=== PATIENT | female | born 1960 | race Caucasian/White ===

== ENCOUNTER 2025-07-08 05:53 | Inpatient (IN) ==
--- NOTE | 2025-07-04 08:53 | Anesthesiology Consultation ---
Date of Service July 04, 2025 Assessment & Plan (1) Encounter for pre-operative examination: Chart Review Chart Review: Acceptable Risk for Surgery (pending DOS EKG) and Patient NOT seen in Pre Admission Testing - Check EKG stat DOS - Discussed Chiari malformation with Dr Cates- patient with brain surgery in 1998 for the malformation (presumed decompression); no issues since- no neurological symptoms/no recent head imaging- patient can proceed as scheduled -Infectious Disease screening: Per PAT nursing assessment on 07/02/25. Scratchy throat that started 06/30/25- followed up with PCP over the phone- treated with abx for "cold" (had followed up with surgeon 07/01/25). As of 07/04/25 patient is feel better/symptoms resolved (will continue with abx as prescribed). Did take home Covid test that was negative per patient. No known infectious disease contacts in past 10 days. No recent travel outside the country. Spoke with Infection Control- since patient is asymptomatic and home Covid test was negative- no additional Covid testing is needed preoperatively History Surgery Operation Date: 07/08/25 07:30 Proposed Procedures p Robotic Navigational Bronchoscopy - Howard Casey MD s Endobronchial Ultrasound - Howard Casey MD Height/Weight Height: 5 ft 5 in Weight: 49.895 kg Allergies Allergy/AdvReac Type Severity Reaction Status Date / Time BEE STINGS Allergy Severe Uncoded 07/08/25 06:06 Medications Home Medications Medication Instructions Recorded Confirmed Last Taken albuterol sulfate 1.25 mg/3 mL 1.25 mg inhalation QID PRN sob 07/01/25 07/08/25 07/06/25 07:00 solution for nebulization albuterol sulfate 90 mcg/actuation 1 puff inhalation QID PRN sob 07/01/25 07/08/25 07/07/25 20:00 aerosol inhaler fluticasone fur. 100 mcg-umeclid 1 inh inhalation DAILY 07/01/25 07/08/25 07/08/25 04:00 62.5 mcg-vilant 25 mcg inhalat.powder (Trelegy Ellipta) ipratropium bromide 0.02 % 2.5 ml inhalation QID PRN sob 07/01/25 07/08/25 Unknown solution for inhalation omeprazole 40 mg capsule,delayed 40 mg PO QAM 10/07/08/25 07/08/25 04:00 release trazodone 150 mg tablet 150 mg PO HS PRN Sleep 07/01/25 07/08/25 Unknown acetaminophen 500 mg tablet 1,000 mg PO DAILY PRN Pain 07/02/25 07/08/25 07/06/25 08:00 food supplemt, lactose-reduced 1 ea PO DAILY 07/02/25 07/08/25 Unknown (Ensure oral liquid) Active Medications Generic Name Dose Route Start Last Admin Trade Name Freq PRN Reason Stop Dose Admin Lactated Ringer's 1,000 mls @ 15 mls/hr 07/08/25 06:00 07/08/25 06:21 Lr IV 07/09/25 05:59 15 mls/hr .Q24H PETER Administration Past Medical History Medical History HLD (hyperlipidemia) History of Chiari malformation s/p brain surgery 1998 no longer follows with neurosurgery due to stability per patient denies any neurological symptoms currently History of blood transfusion (2018) states after RUL lobectomy History of pneumonia (05/2025) admit to [facility] 5 days Osteoporosis Cardiac murmur checked in past, no issues, no well treatment offsider no cardiac murmur noted at 07/01/25 pulm visit or at 06/27/25 PCP visit [facility] (dyspnea on exertion) Pulmonary nodule New suspicious pulmonary nodule - reason for upcoming procedure 07/08/25 Hx of cancer of lung (2018) had RUL lobectomy, no chemo or xrt Barretts esophagus GERD (gastroesophageal reflux disease) COPD (chronic obstructive pulmonary disease) case management patient follows with dr. casey - only uses inhalers/nebs as needed- used her albuterol last night, trelegy yesterday AM Past Surgical History Surgical History History of lobectomy of lung (2018) RUL- lung cancer- [place]- no chemo or xrt Hx of esophagogastroduodenoscopy Hx of colonoscopy with polypectomy Hx of laparoscopy multiple History of lumpectomy of both breasts benign Hx of breast biopsy benign Hx of cholecystectomy (2017) Hx of unilateral salpingectomy (1974) left, with ovary removal- age 15 Hx of appendectomy (1971) Hx of brain surgery (1998) chiari malformation- [facility]- no neuro Social History Smoking Status: Current every day smoker Smoking cigarettes per day: 10 cigs per day (trying to quit- advised by PAT nursing) Do You Dip or Chew Tobacco: No Hx Alcohol Use: No Hx Substance Use: No substance use type: does not use Physical Exam Vital Signs Last Vital Signs Temp 36.7 C 07/08/25 06:04 Pulse 84 07/08/25 06:04 Resp 20 07/08/25 06:04 BP 140/64 07/08/25 06:04 Pulse Ox 97 07/08/25 06:04 O2 Del Method Room Air 07/08/25 06:04 Testing Laboratory Results 07/02/25= WBC: 5.9 H/H: 10.7/33.8 PLATELETS: 370 SODIUM: 139 POTASSIUM: 4.1 CHLORIDE: 108 CO2: 27.0 BUN: 21 CREATININE: 1.00 GLUCOSE: 93 Electrocardiogram Date: 06/02/25 ST at 107bpm Normal axis Incomplete RBBB (Done during admission for suspected COPD exacerbation/sepsis (likely pneumonia)- will repeat DOS ) Other Testing Chest CT 06/30/25= 1.3 cm spiculated pulmonary nodule at the lingula has morphology suspicious for malignancy. There is prior right upper lobectomy. There is moderate emphysema. There is no pulmonary consolidation or pleural effusion. There are a few calcified pulmonary granuloma.
[2025-07-08] MEDS: LR 15ML/HR IV SCH (06:21)
--- NOTE | 2025-07-08 06:40 | History & Physical Bridge Note ---
Date of Service July 08, 2025 History & Physical Bridge Note I have examined the patient, reviewed the History & Physical and in the interval since the performance of the History & Physical I have noted the following changes of clinical significance: no changes noted
[2025-07-08] MEDS ORDERED: LIDOCAINE 2% 2 ML VIAL/AMP(20MG/ML) INFIL ONE (07:09)
[2025-07-08] MEDS ORDERED: ONDANSETRON INJ 2 MG/ML 2 ML VIAL ONE (07:09)
[2025-07-08] MEDS ORDERED: MIDAZOLAM HCL 1 MG/ML 2ML VIAL ONE (07:09)
[2025-07-08] MEDS ORDERED: PROPOFOL IV EMULSION 10 MG/ML 20 ML VIAL IV ONE (07:09)
[2025-07-08] MEDS ORDERED: DEXAMETHASONE SOD INJ 4 MG/ML VIAL ONE (07:09)
[2025-07-08] MEDS ORDERED: ROCURONIUM BROMIDE 10 MG/ML 5 ML VIAL IV ONE ×2 (07:09→08:00)
[2025-07-08] MEDS ORDERED: ATROPINE SULFATE 0.1 MG/ML 10ML SYR IV PRN (07:16)
[2025-07-08] MEDS ORDERED: DROPERIDOL 5 MG/2 ML VIAL IV PRN (07:16)
[2025-07-08] MEDS ORDERED: PHENYLEPHRINE 100MCG/ML 5ML SYR ONE (07:37)
[2025-07-08] MEDS ORDERED: PHENYLEPHRINE HCL 10 MG/ML VIAL ONE (07:50)
[2025-07-08] MEDS ORDERED: VASOPRESSIN 20 UNIT/ML VIAL ONE (08:16)
[2025-07-08] MEDS ORDERED: NEOSTIGMINE METHYLSULFATE 1 MG/ML 10ML VIAL ONE (08:45)
[2025-07-08] MEDS ORDERED: GLYCOPYRROLATE 0.2 MG/ML VIAL ONE (08:45)
--- NOTE | 2025-07-08 09:14 | Procedure Note ---
Procedure Note: Bronchoscopy Procedure Procedure: Fiberoptic bronchoscopy Electromagnetic navigational bronchoscopy with fluoroscopic guidance Endobronchial ultrasound evaluation during bronchoscopy Endobronchial ultrasound with transbronchial needle aspiration of lymph nodes, single station Electromagnetic navigational bronchoscopy with transbronchial biopsies under fluoroscopic guidance Electromagnetic navigational bronchoscopy with fine-needle aspiration under fluoroscopic guidance Placement of fiducial under fluoroscopic guidance Provider: Howard Casey MD Indication: Pulmonary nodule in patient with known history of resected lung cancer Consent: Signed by patient and timeout verified prior to procedure. Procedure: Patient was brought to the OR suite. Consent was verified. Appropriate radiographic studies had been reviewed prior to the procedure. General anesthesia was initiated by the anesthesia team and the patient was intubated with an 8.0 endotracheal tube. After initiation of general anesthesia, the fiberoptic scope was advanced through the existing endotracheal tube via the adapter. The tube was sounded. It was withdrawn to approximately 5 or 6 cm above the wendy and secured in place. A systematic inspection of the airways was then conducted. The right tracheobronchial tree was examined. The patient is status post right upper lobectomy. The staple line was intact. The remaining of the anatomy was unremarkable and the mucosa was normal. Left tracheobronchial tree also demonstrated a normal anatomic configuration with normal mucosa. No endobronchial lesions were identified. The fiberoptic scope was then removed. There were some clear thin mucoid secretions present in the airways which were suctioned free. The robotic adapter was then secured to the endotracheal tube and secured using the flexible arm attached to the bed. The patient had previously been placed on a bed with an electromagnetic navigation field and a tilt table in place. The robot was advanced to the head of the bed and the robotic arm was docked to the endotracheal tube via the robotic adapter. Robot arm was withdrawn in normal fashion and the scope attached with the antibuckling device. The robotic scope was then maneuvered into the endotracheal tube where controller registration took place. Once that was confirmed the scope was advanced to the main wendy and verified in good position. Navigational registration was then conducted without difficulty. Once registration was completed, the robotic bronchoscope was used to navigate to the lesion in the lingula. Once the scope was approximately 15 to 20 mm from the lesion, a fluoroscopic tomographic spin was conducted with reconstruction of images. Multiple tomographic spin's were required with repositioning of the scope and To enable an adequate view of the lesion. The lesion was able to be verified on the tomogram. It was marked and additional navigation was conducted under direct fluoroscopic guidance with augmented fluoroscopy. Once the scope was appropriately angled towards the lesion, under direct fluoroscopic guidance, The radial ultrasound probe was advanced. A slightly eccentric view of the pulmonary nodule was identified corresponding to the augmented fluoroscopic images. The radial ultrasound was then removed and an arc point needle was advanced under fluoroscopic guidance into the lesion. Repeat tomographic spin was conducted with the needle within the lesion and strike point was verified. 2 passes were the needle were conducted. Rapid onsite cytologic evaluation confirmed malignant cells on the needle. At that point,biopsy forceps were advanced into the lesion. Total of 6 biopsies were taken with touch preps performed and rapid onsite cytologic evaluation conducted. Advanced augmented microscopy confirmed lesional material and rapid onsite cytologic evaluation confirmed malignant cells. Once adequate cellular material had been obtained, a fiducial was placed under fluoroscopic guidance and confirmed in 3 planes to be in good position. The robotic bronchoscope was withdrawn and the robotic arm detached from the patient. The endobronchial ultrasound was then advanced through the adapter via the existing endotracheal tube. A survey of mediastinal lymph node stations was conducted including the 4R, 4L, 7, 10/11 R, and 10/11 L stations. A 6 mm subcarinal lymph node was identified and biopsied using a 21-gauge needle x 4 with rapid onsite cytologic evaluation confirming adequacy of specimen. The scope was then withdrawn to the tip of the endotracheal tube and hemostasis was confirmed. Scope was removed from the airway. The patient was turned over to anesthesia for extubation and returned to the PACU having tolerated the procedure well without complication. EBL: Less than 5 ml Impression: 1. Status post right upper lobectomy with intact staple line 2. Successful electromagnetic robotic navigation to a 10 mm lingular pulmonary nodule. Status post biopsy/FNA under fluoroscopic guidance. Await final pathology. 3. 1 mildly enlarged level 7 lymph node status post FNA x 4 [facility] Procedure Codes (Charges) Pulmonary/Thoracic Procedure 1: Pulmonary and Thoracic: 06158 Navigational Bronchoscopy Procedure 2: Pulmonary and Thoracic: 33214 Bronchoscopy w/ transbronchial lung bx Procedure 3: Pulmonary and Thoracic: 40220 Bronchoscopy, w/EBUS 1 or 2 mediastinal Procedure 4: Pulmonary and Thoracic: 09682 Bronchoscopy w/ needle bx Procedure 5: Pulmonary and Thoracic: 76104 Placement of a fiducial marker Procedure 6: Pulmonary and Thoracic: 33051 Bronchoscopy, w/EBUS add on
[2025-07-08] MEDS: ALBUT/IPRATROP 3MG/0.5MG NEB 3 ML VIAL NEB STA (09:25)
[2025-07-08] MEDS: ALBUT/IPRATROP 3MG/0.5MG NEB 3 ML VIAL ONE (09:28)
--- NOTE | 2025-07-08 09:34 | XRay Report ---
SINGLE VIEW CHEST CLINICAL HISTORY: Post bronchoscopy. FINDINGS: An AP, portable, upright chest radiograph is compared to study dated 06/02/2025 and correlat ed with chest CT dated 06/30/2025. The cardiomediastinal silhouette is unremarkable noting atheroscle rotic calcification of the thoracic aorta. Emphysematous changes observed. There is a large left-side d pneumothorax with near complete atelectasis of the left lung. The trachea remains midline. No right -sided pneumothorax is seen. Scarring/atelectasis is noted at the right lung base. The skeletal struc tures are osteopenic. Bony thorax is grossly intact. Degenerative change and mild scoliosis is seen i n the thoracic spine. Cholecystectomy clips are noted in the right upper quadrant. IMPRESSION: 1. Large left-sided pneumothorax with near complete atelectasis of the left lung. 2. The trachea is midline. 3. Emphysema. ACT 112: Negative or not required by law. Electronically signed by: Ilia Roque M.D. 07/08/2025 9:33 AM
--- NOTE | 2025-07-08 10:15 | XRay Report ---
XR chest 1V portable CLINICAL HISTORY: S/P chest tube placement COMPARISON STUDY: 07/08/2025 FINDINGS: There is an interval left chest tube with the distal pigtail lateral left mid hemithorax. T here is interval resolution of the prior left pneumothorax. No consolidation or pleural effusion seen . Stable mild scoliosis. IMPRESSION: Interval left chest tube with resolution of the prior left pneumothorax. ACT 112: Negative or not required by law. Electronically signed by: Harris Dickey M.D. 07/08/2025 10:14 AM
--- NOTE | 2025-07-08 10:15 | Procedure Note ---
Procedure Note Date of Service July 08, 2025 Procedure: 14 Tristanian pigtail catheter placement Indication: Iatrogenic pneumothorax Consent risk and benefits were discussed with the patient. She agreed. Written consent was verified prior to commencement of the procedure. District Or District Office Director Dr. Casey Estimated blood loss: Less than 5 mL Anesthesia: 5 mL 1% lidocaine without epinephrine locally. Procedure: The patient underwent robotic navigational bronchoscopy earlier today for a pulmonary nodule. Post procedurally in the PACU an x-ray demonstrated a large left-sided pneumothorax. Chest tube placement was warranted. The patient was placed in a semiupright seated position. The infraclavicular space in the midclavicular line on the left was cleansed using chlorhexidine and a sterile field established. An area approximately 2 cm below the clavicle in the midclavicular line was anesthetized with lidocaine. The muscle and deeper soft tissues were anesthetized using a finder needle. With the finder needle I was able to aspirate air. The finder needle was then withdrawn. A small skin maria isabel was made with a scalpel. An 18-gauge needle was then advanced on a similar line until I was able to aspirate air. The syringe was withdrawn leaving the needle in place. A wire was passed through the needle and then the needle was withdrawn leaving the wire in the pleural space. A 14 Tristanian dilator was then passed over the wire to dilate the skin and soft tissues. This passed with ease. The dilator was removed leaving the wire in place. A 14 Tristanian pigtail catheter was then loaded on a straightening catheter and advanced over the wire into the pleural space. The straight and catheter and wire were removed leaving the pigtail catheter in place. A three-way stopcock was attached. The tube was attached to suction with a 1+ airleak on the Pleur-evac system. The skater catheter fixation system was attached to the chest wall and the catheter secured. Catheter was attached to suction at 20 cm of water. Post procedure chest x-ray demonstrates the catheterto be in good position and the PTX r esolved. The patient tolerated the procedure well. [facility] Procedure Codes (Charges) Pulmonary/Thoracic Procedure 1: Pulmonary and Thoracic: 22027 Pleural drainage w/o imaging Coding CPT Codes Pulmonary/Thoracic - Pulmonary and Thoracic: 54170 Pleural drainage w/o imaging ([id number]) Additional Codes Date of Service ([facility].SURGERY)
--- NOTE | 2025-07-08 10:28 | Pulmonary Consultation ---
Date of Consultation July 08, 2025 Assessment & Plan (1) Pneumothorax after biopsy: (2) Pulmonary nodule: (3) COPD (chronic obstructive pulmonary disease): Plan Impression: 65-year-old female with extensive history of tobacco abuse who continues to smoke and a prior history of resected lung cancer. Data is not available as this was performed at [facility] but has been requested. She has a new suspicious pulmonary nodule which was biopsied today and resulted in an iat rogenic pneumothorax status post chest tube placement with resolution of the pneumothorax. Recommendations: 1. Pulmonary nodule: Await final path. Should be available in 2 to 3 days 2. Await receipt of records from [facility] regarding the patient's prior diagnosis of lung cancer. This includes prior imaging. 3. Smoking cessation was recommended to the patient. She was advised that she should use her Trelegy daily and albuterol on an as needed basis. Will request updated complete pulmonary function testing. 4. PET scanning is pending 5. Postprocedural pneumothorax: Chest tube placed. X-ray demonstrates resolution of the pneumothorax. Intermittent airleak. Continue at suction at 20 cm of water for now. Repeat chest x-ray in AM. If the lung remains up and the airleak resolves, a clamping trial tomorrow may be appropriate with subsequent discontinuation of the chest tube and discharge home if the lung remains up. Case was reviewed with the hospitalist who will be admitting her as well as with the PACU nurse. The patient's was updated and the patient updated at bedside. All are in agreement with the plan as outlined History of Present Illness Attending Physician: Howard Casey MD History of Present Illness Patient is a 65-year-old female who I follow in the outpatient setting. She was just seen last week for an initial evaluation. She has a history of lung cancer which was resected several years ago at [facility]. We are pending receipt of those results. She was admitted with a COPD exacerbation about a month ago and was found to have a spiculated lingular pulmonary nodule. This persisted on imaging and led to her being evaluated in the pulmonary clinic. We recommended bronchoscopy. PET scanning is pending. The patient underwent robotic navigational bronchoscopy with transbronchial biopsy this morning. The procedure was successful and we were able to navigate and biopsy the lesion in question. Formal pathology is pending. Post procedurally the patient's chest x-ray demonstrated a significant left-sided pneumothorax. A left-sided 14 Yoruba Vitor pigtail catheter was placed in the midclavicular line on the left with reexpansion of the lung and intermittent airleak. Patient tolerated the procedure well and is being admitted to the hospitalist service overnight for management of the chest tube. She feels much better with the tube in place. Pain is being adequately controlled. She is not coughing or expectorating phlegm Allergies Allergy/AdvReac Type Severity Reaction Status Date / Time BEE STINGS Allergy Severe Uncoded 07/08/25 06:06 Home Medications Medication Instructions Recorded Confirmed Type albuterol sulfate 1.25 mg/3 mL 1.25 mg inhalation QID PRN sob 07/01/25 07/08/25 History solution for nebulization albuterol sulfate 90 mcg/actuation 1 puff inhalation QID PRN sob 07/01/25 07/08/25 History aerosol inhaler fluticasone fur. 100 mcg-umeclid 1 inh inhalation DAILY 07/01/25 07/08/25 History 62.5 mcg-vilant 25 mcg inhalat.powder (Trelegy Ellipta) ipratropium bromide 0.02 % 2.5 ml inhalation QID PRN sob 07/01/25 07/08/25 History solution for inhalation omeprazole 40 mg capsule,delayed 40 mg PO QAM 07/01/25 07/08/25 History release trazodone 150 mg tablet 150 mg PO HS PRN Sleep 07/01/25 07/08/25 History acetaminophen 500 mg tablet 1,000 mg PO DAILY PRN Pain 07/02/25 07/08/25 History food supplemt, lactose-reduced 1 ea PO DAILY 07/02/25 07/08/25 History (Ensure oral liquid) Patient History Medical History (Updated 07/08/25 @ 10:26 by Howard Casey MD) HLD (hyperlipidemia) History of Chiari malformation s/p brain surgery 1998 no longer follows with neurosurgery due to stability per patient denies any neurological symptoms currently History of blood transfusion (2018) states after RUL lobectomy History of pneumonia (05/2025) admit to [facility] days Osteoporosis Cardiac murmur checked in past, no issues, no plant guide no cardiac murmur noted at 07/01/25 pulm visit or at 06/27/25 PCP visit [facility] (dyspnea on exertion) Pulmonary nodule New suspicious pulmonary nodule - reason for upcoming procedure 07/08/25 Hx of cancer of lung (2018) had RUL lobectomy, no chemo or xrt Barretts esophagus GERD (gastroesophageal reflux disease) COPD (chronic obstructive pulmonary disease) case management patient follows with dr. casey - only uses inhalers/nebs as needed- used her albuterol last night, trelegy yesterday AM Surgical History History of lobectomy of lung (2018) RUL- lung cancer- [place]- no chemo or xrt Hx of esophagogastroduodenoscopy Hx of colonoscopy with polypectomy Hx of laparoscopy multiple History of lumpectomy of both breasts benign Hx of breast biopsy benign Hx of cholecystectomy (2017) Hx of unilateral salpingectomy (1974) left, with ovary removal- age 15 Hx of appendectomy (1971) Hx of brain surgery (1998) chiari malformation- [facility]- no neuro Social History Smoking Status: Current every day smoker Tobacco Type: Cigarettes Cigarettes Per Day: 10 cigs per day (trying to quit- advised by [facility] nursing); Second Hand Exposure: No; Do You Dip or Chew Tobacco: No; Tobacco Cessation Education Requested by Patient: No Hx Alcohol Use: No Hx Substance Use: No Preferred Language: Slovak Communication Ability: Effective Lead Installer Required: No Beliefs That Will Affect Care: Sabianism Sabianism Beliefs: day mormon Current Living Situation: Spouse Other Information That Helps Us Care for You: No Feels Safe at Home: Yes Safety Concerns: Feels Safe At This Time Assistive Devices: Denture - Upper and Nebulizer Review of Systems Review of Systems: All systems reviewed & are unremarkable except as noted in Subjective Physical Exam Constitutional: WD/WN, vitals as above Neck: trachea midline, no thyromegaly Respiratory: no respiratory distress, no labored breathing, no cough and not tachypneic Auscultation: + diminished lung sounds Cardiovascular: RRR, no murmur, no edema Chest (Breasts): Additional Comments: Chest tube in place with intermittent 1+ airleak Gastrointestinal (Abdomen): normal bowel sounds, soft, nontender, no hepatosplenomegaly Musculoskeletal: Extremities: extremities normal to inspection Skin: no rashes, warm and dry Neurologic: Nonfocal exam Lymphatic: no cervical lymphadenopathy Results & Data Results & Data Vital Signs (Past 12 Hours) Vital Signs Temp Pulse Pulse Resp BP Pulse Ox O2 Del Method 07/08/25 10:15 88 17 125/67 96 Nasal Cannula 07/08/25 10:05 97 H 12 124/69 96 Oxymask 07/08/25 09:55 91 H 20 143/74 H 91 Oxymask 07/08/25 09:45 86 20 120/70 91 Oxymask 07/08/25 09:35 79 18 132/56 L 91 Oxymask 07/08/25 09:25 81 19 141/63 H 88 L Nebulizer 07/08/25 09:16 36.2 C L 89 27 H 175/70 H 89 L Oxymask 07/08/25 06:04 36.7 C 84 20 140/64 97 Room Air O2 Flow Rate 07/08/25 10:15 3 07/08/25 10:05 8 07/08/25 09:55 15 07/08/25 09:45 15 07/08/25 09:35 15 07/08/25 09:25 6 07/08/25 09:16 15 07/08/25 06:04 Critical Care Results & Data Vital Signs (Past 12 Hours) Vital Signs Temp Pulse Pulse Resp BP Pulse Ox O2 Del Method 07/08/25 10:15 88 17 125/67 96 Nasal Cannula 07/08/25 10:05 97 H 12 124/69 96 Oxymask 07/08/25 09:55 91 H 20 143/74 H 91 Oxymask 07/08/25 09:45 86 20 120/70 91 Oxymask 07/08/25 09:35 79 18 132/56 L 91 Oxymask 07/08/25 09:25 81 19 141/63 H 88 L Nebulizer 07/08/25 09:16 36.2 C L 89 27 H 175/70 H 89 L Oxymask 07/08/25 06:04 36.7 C 84 20 140/64 97 Room Air O2 Flow Rate 07/08/25 10:15 3 07/08/25 10:05 8 07/08/25 09:55 15 07/08/25 09:45 15 07/08/25 09:35 15 11/04/25 09:25 6 07/08/25 09:16 15 07/08/25 06:04 Lab & Micro Results (Past 24 Hours) No Data to Display No Data to Display No Data to Display Diagnostic Findings (Past 24 Hours) Chest X-Ray 07/08/25 09:03 SINGLE VIEW CHEST CLINICAL HISTORY: Post bronchoscopy. FINDINGS: An AP, portable, upright chest radiograph is compared to study dated and correlated with chest CT dated 06/30/2025. The cardiomediastinal silhouette is unremarkable noting atherosclerotic calcification of the thoracic aorta. Emphysematous changes observed. There is a large left-sided pneumothorax with near complete atelectasis of the left lung. The trachea remains midline. No right-sided pneumothorax is seen. Scarring/atelectasis is noted at the right lung base. The skeletal structures are osteopenic. Bony thorax is grossly intact. Degenerative change and mild scoliosis is seen in the thoracic spine. Cholecystectomy clips are noted in the right upper quadrant. IMPRESSION: 1. Large left-sided pneumothorax with near complete atelectasis of the left lung. 2. The trachea is midline. 3. Emphysema. ACT 112: Negative or not required by law. Electronically signed by: Ilia Roque M.D. 07/08/2025 9:33 AM Chest X-Ray 07/08/25 09:55 XR chest 1V portable CLINICAL HISTORY: S/P chest tube placement COMPARISON STUDY: 07/08/2025 FINDINGS: There is an interval left chest tube with the distal pigtail lateral left mid hemithorax. There is interval resolution of the prior left pneumothorax. No consolidation or pleural effusion seen. Stable mild scoliosis. IMPRESSION: Interval left chest tube with resolution of the prior left pneumothorax. ACT 112: Negative or not required by law. Electronically signed by: Harris Dickey M.D. 07/08/2025 10:14 AM I & O Totals 24 Hours 07/07/25 07/08/25 07/09/25 06:59 06:59 06:59 Intake Total 0 / 0 Balance 0 / 0 Cumulative 07/02/25 08:21 thru 07/08/25 07:25 Intake Total 0 Balance 0 RT Ventilator Mngmt (Last Documented) Ventilator Ordered Settings Respiratory Rate 17 07/08/25 10:15 Ventilator - PT Measurements Respiratory Rate 17 PG Care Time/CCT Total # of Minutes Spent Total Time Spent with Patient: Total time spent is greater than 50% in coordination of care (as documented) at patient's floor/unit and/or counseling patient: Coding Level of Care Code 69612 INT INP/OBS CARE 2/55MIN Diagnoses Pneumothorax after biopsy J95.811 Pulmonary nodule R91.1 COPD (chronic obstructive pulmonary disease) J44.9
--- NOTE | 2025-07-08 10:54 | History & Physical Report ---
Date of Service July 08, 2025 Assessment & Plan (1) Pneumothorax after biopsy: Plan: Assessment: 1. Acute pneumothorax status postbiopsy spiculated left lung mass. Now status post chest tube placement with near resolution of the pneumothorax after chest tube placement. The patient's be admitted to the hospitalist service to the telemetry unit for close hemodynamically monitoring including telemetry monitoring and continuous pulse ox. Pulmonology will continue to follow for the chest tube management. We will advance her diet to clear liquids and advance as tolerated to heart healthy diet. 2. COPD without acute exacerbation. Home meds and pulmonary toilet as at home. 3. Lung carcinoma remotely status post right upper lobe lobectomy 2019. Now with new spiculated left lung mass. Biopsy today results pending. 4. History of dyslipidemia. 5. History of insomnia. 6. History of Chiari malformation status post surgery years ago. 7. GERD with history of Lind's esophagus. Continue PPI as at home. Plan: As discussed above. Please refer to orders for further planning. History of Present Illness Chief Complaint: Left-sided pneumothorax status post bronchoscopy and now status post left chest tube placement. Primary Care Provider: Mary Pastor MD This is a pleasant 65-year-old female with a remote history of of lung cancer status post right upper lobe lobectomy. This was back around 2019. Patient had a recent hospitalization for a COPD exacerbation where chest imaging demonstr ated a left-sided spiculated nodule. Patient presented to [facility] today to undergo bronchoscopy with biopsy. Postprocedure x-ray showed a large near complete pneumothorax of the left lung. Chest tube was placed in the left upper chest wall. Post chest tube placement chest x-ray demonstrated near resolution of the pneumothorax. We were contacted by pulmonology, Dr. Casey, for admission of the patient to the hospital for acute pneumothorax. We evaluated the patient in PACU. Allergies Allergy/AdvReac Type Severity Reaction Status Date / Time BEE STINGS Allergy Severe Uncoded 07/08/25 06:06 Home Medications Medication Instructions Recorded Confirmed Type albuterol sulfate 1.25 mg/3 mL 1.25 mg inhalation QID PRN sob 07/01/25 07/08/25 History solution for nebulization albuterol sulfate 90 mcg/actuation 1 puff inhalation QID PRN sob 07/01/25 07/08/25 History aerosol inhaler fluticasone fur. 100 mcg-umeclid 1 inh inhalation DAILY 07/01/25 07/08/25 History 62.5 mcg-vilant 25 mcg inhalat.powder (Trelegy Ellipta) ipratropium bromide 0.02 % 2.5 ml inhalation QID PRN sob 07/01/25 07/08/25 History solution for inhalation omeprazole 40 mg capsule,delayed 40 mg PO QAM 07/01/25 07/08/25 History release trazodone 150 mg tablet 150 mg PO HS PRN Sleep 07/01/25 07/08/25 History acetaminophen 500 mg tablet 1,000 mg PO DAILY PRN Pain 07/02/25 07/08/25 History food supplemt, lactose-reduced 1 ea PO DAILY 07/02/25 07/08/25 History (Ensure oral liquid) Past Med/Surg History Problem List (Updated 07/08/25 @ 10:26 by Howard Casey MD) Pneumothorax after biopsy Encounter for pre-operative examination Lung cancer 2019 Pulmonary nodule COPD (chronic obstructive pulmonary disease) Hx of colonic polyps Medical History (Updated 07/08/25 @ 10:26 by Howard Casey MD) HLD (hyperlipidemia) History of Chiari malformation s/p brain surgery 1998 no longer follows with neurosurgery due to stability per patient denies any neurological symptoms currently History of blood transfusion (2018) states after RUL lobectomy History of pneumonia (05/2025) admit to [facility] days Osteoporosis Cardiac murmur checked in past, no issues, no locksmith no cardiac murmur noted at 07/01/25 pulm visit or at 06/27/25 PCP visit [facility] (dyspnea on exertion) Pulmonary nodule New suspicious pulmonary nodule - reason for upcoming procedure 07/08/25 Hx of cancer of lung (2019) had RUL lobectomy, no chemo or xrt Barretts esophagus GERD (gastroesophageal reflux disease) COPD (chronic obstructive pulmonary disease) case management patient follows with dr. casey - only uses inhalers/nebs as needed- used her albuterol last night, trelegy yesterday AM Surgical History History of lobectomy of lung (2018) RUL- lung cancer- [place]- no chemo or xrt Hx of esophagogastroduodenoscopy Hx of colonoscopy with polypectomy Hx of laparoscopy multiple History of lumpectomy of both breasts benign Hx of breast biopsy benign Hx of cholecystectomy (2018) Hx of unilateral salpingectomy (1974) left, with ovary removal- age 15 Hx of appendectomy (1971) Hx of brain surgery (1998) chiari malformation- [place]- no neuro Social History Smoking Status: Current every day smoker Tobacco Type: Cigarettes Cigarettes Per Day: 10 cigs per day (trying to quit- advised by [facility] nursing); Second Hand Exposure: No; Do You Dip or Chew Tobacco: No; Tobacco Cessation Education Requested by Patient: No Hx Alcohol Use: No Hx Substance Use: No Preferred Language: Greenlandic Communication Ability: Effective Software Client Architect Required: No Beliefs That Will Affect Care: Baptist Baptist Beliefs: protestant Current Living Situation: Spouse Other Information That Helps Us Care for You: No Feels Safe at Home: Yes Safety Concerns: Feels Safe At This Time Assistive Devices: Denture - Upper and Nebulizer Review of Systems Review of Systems: A 10 point review of system was obtained and unless otherwise stated here or in history of present illness are negative and noncontributory to chief complaint. Physical Exam Physical Exam: In General: In general pleasant 65-year-old female. She appears somewhat cachectic on gross inspection. She is alert and oriented x 3. Currently on 3 L of oxygen on nasal cannula and appears fairly comfortable. She has no acute complaints. HEENT: Normocephalic atraumatic pupils are equal round and reactive to light bilaterally. No scleral icterus no conjunctival injection external auditory canals are patent septum is in the midline nose is without discharge oral mucosa is pink and dry without lesion. NECK: Supple no rigidity no lymphadenopathy no thyromegaly no carotid bruits no JVD no masses. HEART: Regular rate and rhythm I do not appreciate any ectopy or rub. No murmur. LUNGS: Globally diminished. I do not appreciate any adventitious sounds however. Chest tube noted left anterior chest wall. ABDOMEN: Soft nontender, no rebound, no peritoneal signs, positive bowel sounds, no appreciable organomegaly. EXTREMITIES: Intact, no peripheral cyanosis, clubbing or edema. Strength adequate and equal x 4. NEUROLOGICAL: Cranial nerves II through XII are grossly intact with no focal deficit elicited upon examination. Results & Data Results & Data Vital Signs (Past 12 Hours) Vital Signs Temp Pulse Pulse Resp BP Pulse Ox O2 Del Method 07/08/25 10:40 78 20 119/62 98 Nasal Cannula 07/08/25 10:25 37.4 C 83 17 125/51 L 96 Nasal Cannula 07/08/25 10:15 88 17 125/67 96 Nasal Cannula 07/08/25 10:05 97 H 12 124/69 96 Oxymask 07/08/25 09:55 91 H 20 143/74 H 91 Oxymask 07/08/25 09:45 86 20 120/70 91 Oxymask 07/08/25 09:35 79 18 132/56 L 91 Oxymask 07/08/25 09:25 81 19 141/63 H 88 L Nebulizer 07/08/25 09:16 36.2 C L 89 27 H 175/70 H 89 L Oxymask 07/08/25 06:04 36.7 C 84 20 140/64 97 Room Air O2 Flow Rate 07/08/25 10:40 3 07/08/25 10:25 3 07/08/25 10:15 3 07/08/25 10:05 8 07/08/25 09:55 15 07/08/25 09:45 15 07/08/25 09:35 15 07/08/25 09:25 6 07/08/25 09:16 15 07/08/25 06:04 Code Status & VTE Plan Code Status Full code. I personally discussed with patient at the bedside this morning. VTE Prophylaxis Plan VTE Prophylaxis will be ordered: Yes PG Care Time/CCT Total # of Minutes Spent Total Time Spent with Patient: Total time spent is greater than 50% in coordination of care (as documented) at patient's floor/unit and/or counseling patient: Coding Level of Care Code 83187 INT INP/OBS CARE 375MIN Diagnoses Pneumothorax after biopsy J95.811
[2025-07-08] MEDS: LIDOCAINE 2% 2 ML VIAL/AMP(20MG/ML) INFIL ONE (11:18)
--- NOTE | 2025-07-08 12:04 | Electrocardiogram Report ---
Test Reason : Blood Pressure : */* mmHG Vent. Rate : 74 BPM Atrial Rate : 74 BPM P-R Int : 172 ms QRS Dur : 82 ms QT Int : 390 ms P-R-T Axes : 79 64 72 degrees QTcB Int : 432 ms Normal sinus rhythm Normal ECG No previous ECGs available Confirmed by Marco Ventura ([id number]) on 07/08/2025 12:04:26 PM Referred By: Howard Casey Confirmed By: Marco Ventura
[2025-07-08] MEDS ORDERED: ALBUTEROL HFA 8 GM INHALER INH PRN (12:17)
[2025-07-08] MEDS ORDERED: IPRATROPIUM BROMIDE NEB SOLN 0.02% 0.5MG/2.5ML VIAL INH PRN (12:17)
[2025-07-08] MEDS ORDERED: ALBUTEROL 0.5% NEB SOLN 2.5 MG/0.5 ML VIAL INH PRN (12:17)
[2025-07-08] MEDS ORDERED: ACETAMINOPHEN 500 MG TAB PO PRN (12:17)
[2025-07-08] MEDS: ACETAMINOPHEN 325 MG TAB PO PRN (16:12)
[2025-07-08] MEDS: HYDROCODONE/ACETAMOPHEN 5/325MG TAB PO PRN (19:07)
[2025-07-09 07:15] LABS: Hematocrit (blood only) 28.8 % (37.0-47.0); Hemoglobin 9.7 g/dl (12.0-16.0); Immature Granulocytes # (auto) 0.07 K/uL (0.01-0.20); Immature Granulocytes % (auto) 0.7 %; Mean Corpuscular Hemoglobin 32.0 pg (25.0-34.0); Mean Corpuscular Volume 95.0 fL (80.0-100.0); Platelet Count 327 K/uL (130-400); RDW Standard Deviation 47.4 fL (36.4-46.3); Red Blood Count 3.03 M/uL (4.20-5.40); White Blood Count 10.32 K/ul (4.8-10.8)
[2025-07-09 07:42] LABS: Alanine Aminotransferase 13.0 U/L (7-52); Albumin Globulin Ratio 1.4 (0.9-2); Albumin Level 3.9 gm/dl (3.4-5.0); Alkaline Phosphatase 45.0 U/L (34-104); Anion Gap 7.0 (3-11); Bilirubin,Total 0.5 mg/dl (0.2-1.0); Blood Urea Nitrogen 16.0 mg/dl (6-23); Calcium 9.3 mg/dl (8.6-10.3); Carbon Dioxide 26.0 mmol/L (21-32); Chloride 105.0 mmol/L (98-107); Cholesterol 216.0 mg/dl (0-200); Creatinine Clr Calc Pharmacy 60.5 ml/min; Globulin 2.7 gm/dl (2.5-4.0); Glucose 101.0 mg/dl (70-99(Fasting)); HDL Cholesterol 44.0 mg/dl; Magnesium 2.1 mg/dl (1.7-2.4); Potassium 4.1 mmol/L (3.5-5.1); Sodium 138.0 mmol/L (136-145); Total Protein 6.6 gm/dl (6.0-8.3); Triglycerides 176.0 mg/dl (0-150)
[2025-07-09 07:56] LABS: Thyroid Stimulating Hormone 0.45 uIu/ml (0.300-4.500)
--- NOTE | 2025-07-09 08:11 | XRay Report ---
EXAM: XR chest 1V portable CLINICAL HISTORY: Chest tube TECHNIQUE: An X-ray image of the chest was obtained in the AP portable projection. COMPARISON: Prior CT study dated 06/30/2025. FINDINGS: ECG leads are seen projecting over the chest. The left chest tube is noted, with its tip seen coiled at the lateral aspect of the left mid/lower zone. Pulmonary Parenchyma: A small left lower zone medial aspect nodule is noted, measuring 9 mm. There is no evidence of consolidation or collapse. There is no evidence of pleural effusion or pleural thickening. Heart and Mediastinum: The size and shape of the heart are normal. There is no mediastinal widening or masses. No hilar or mediastinal lymphadenopathy is identified. Bony Thorax: Mild thoracic spine scoliosis is present, with its convexity to the right side. Two small sclerotic foci are seen projecting over the right humeral neck and right scapula. The bony thorax appears intact, without fractures or deformities. Soft Tissues: The soft tissues overlying the chest wall are unremarkable. IMPRESSION: 1. Left chest tube, new finding. 2. No acute cardiopulmonary abnormalities are identified. 3. Left lower zone medial aspect small nodule, unchanged. 4. Clinical correlation is suggested. Electronically signed by Tommie Acuña 07-09-2025 08:11 AM
--- NOTE | 2025-07-09 08:39 | Hospitalist Progress Note ---
"Date of Service July 09, 2025 Assessment & Plan Plan Pt is a 65 y/o woman w/ PMHx significant for Hx lung cancer, COPD, active tobacco abuse, HLD, GERD w/ Barettes who presents for pneumothorax following pulm biopsy for a pulmonary nodule. #Pneumothorax of L lung - post-bopsy of spiculated L lung mass; CXR on 07/08 confirmed placement of chest tube with resolution of prior L pneumothorax. Chest tube was clamped 07/09 by pulmonology and a f/u CXR revealed no pneumothorax. Chest tube was later removed on 07/09 by pulmonology. -Pt stable from Pulm standpoint - per pulmonology -advance to heart-healthy diet as tolerated -Pain: Tylenol prn #Left Lung Nodule | Hx Lung CA - biopsy 07/08 -Biospy pending #COPD | Tobacco Abuse - No acute concerns -Continue Fluticasone Furoate, Anoro Ellipta -Continue Albuterol HFA, Albuterol neb - QID -Continue Chantix -Encourage Smoking Cessation #HLD - no acute concerns #GERD w/ Barretts - no acute concerns -HOLD omeprazole -Continue Pantoprazole #Insomnia - no acute concerns -Continue Trazodone prn #Chiari malformation - S/P surgical correction; pt stable; no longer follows w/ neurology Dispo: Med/Tele - awaiting safe dispo VTE Proph: SCDs Admission and Anticipated Discharge Date Admission Date: July 08, 2025 Subjective Pt was sitting in bed today in NAD. She notes that she is feeling much improved after having the chest-tube placed and then removed. She notes that after removal, she coughed up a small amount of blood and would like to stay for one more night. Pt admits to a slight sore-throat but denies congestion. She notes that her chest is still sore following biopsy and chest tube removal. Pt denies congestion, H/A, SOB, N/V, and abd discomfort. Pt states that she has not yet had a bowel movement, but she is passing gas. Telemetry: Sinus 60s-70s at night; Sinus 80s in AM Review of Systems Review of Systems: All systems reviewed & are unremarkable except as noted in Subjective Physical Exam Physical Exam: General: Pt is a 65 y/o WD/WN female in NAD in bed. VS: reviewed as above Skin: Wound dressing seen on upper L chest wall @ site of Chest tube placement. Dressing is dry and intact. Skin is otherwise warm and dry; no lesions or ulcerations Respiratory: CTA bilat, no adventitious sounds noted. Chest expansion is full and symmetrical Cardio: RRR no murmurs Abdomen: normoactive BS x4, nontender to palpation MSK: FROM of extremities, no deformities Extremities: no edema present Neuro: A&Ox4, cooperative and plesant Results & Data Results & Data Vital Signs (Past 12 Hours) Vital Signs Temp Pulse Resp BP Pulse Ox O2 Del Method 07/09/25 07:19 Room Air 07/09/25 07:06 98.2 F 63 18 126/53 L 94 Room Air 07/09/25 06:00 Room Air 07/09/25 02:45 98.2 F 78 18 124/64 95 Room Air 07/08/25 22:38 97.7 F 72 20 108/58 L 93 Room Air Laboratory Results Reviewed Labs: PG Care Time/CCT Total # of Minutes Spent Total Time Spent with Patient: Total time spent is greater than 50% in coordination of care (as documented) at patient's floor/unit and/or counseling patient: Coding"
[2025-07-09] MEDS: FLUTICASONE FUROATE 100MCG 14 PUFFS/INHALER INH SCH (08:41)
[2025-07-09] MEDS: UMECLIDINIUM/VILANTEROL 62.5/25MCG 7 PUFFS/INHALER INH SCH (08:41)
[2025-07-09] MEDS ORDERED: NON-FORMULARY MEDICATION (Fluticasone-Umeclidin-Vilanter [Trelegy Ellipta] 100-62.5-25 mcg INH SCH (09:00)
[2025-07-09] MEDS: IPRATROPIUM BROMIDE NEB SOLN 0.02% 0.5MG/2.5ML VIAL INH PRN (11:05)
--- NOTE | 2025-07-09 11:41 | XRay Report ---
XR chest 1V portable CLINICAL HISTORY: Eval left PTX after chest tube clamp COMPARISON STUDY: 07/09/2025 FINDINGS: Stable left chest tube. No pneumothorax seen. No consolidation or pleural effusion. IMPRESSION: No pneumothorax seen. ACT 112: Negative or not required by law. Electronically signed by: Harris Dickey M.D. 07/09/2025 11:40 AM
--- NOTE | 2025-07-09 12:53 | Pulmonology Progress Note ---
Date of Service July 09, 2025 Assessment & Plan (1) Pneumothorax after biopsy: (2) Pulmonary nodule: (3) COPD (chronic obstructive pulmonary disease): Plan Impression: 65-year-old female with extensive history of tobacco abuse who continues to smoke and a prior history of resected lung cancer. New suspicious pulmonary nodule which was biopsied on 07/08/2025 with resultant iatrogenic pneumothorax status post chest tube placement with resolution of the pneumothorax. Recommendations: 1. Pulmonary nodule: Await final path. Should be available in 2 to 3 days. Follow up with Dr. Casey 2. Await receipt of records from [facility] regarding the patient's prior diagnosis of lung cancer. This includes prior imaging. 3. Smoking cessation was recommended to the patient. She was advised that she should use her Trelegy daily and albuterol on an as needed basis. Will request updated complete pulmonary function testing. 4. PET scanning is pending 5. Postprocedural pneumothorax: Chest tube placed 07/08/25. PTX resolved. No airleak and Chest tube clamped. Repeat CXR showed no recurrence of PTX. Will remove chest tube today. Thank you for allowing us to participate in this patients care. Please feel free to reach out with questions or concerns 40 minutes is the time spent reviewing the chart, obtaining history, performing the physical exam, and updating the patient and bedside nurse. Admission and Anticipated Discharge Date Admission Date: July 08, 2025 Supervising Physician Co-Signing Physician Notes Patient separately seen and evaluated for a PE. Agree with above. Patient with some hemoptysis post procedurally which is improving. Saturating well on room air. Can likely DC home tomorrow. Please call pulmonary service with questions or concerns. Lungs with prolonged periods of exhalation. Breath sounds clear. No tachycardia or tachypnea. Subjective Chesr x-ray improved this morning with reinflation of lung and no PTX seen. No air leak appreciated and chest tube clamped with repeat CXR showing no PTX recurrence. Plan to remove chest tube. Review of Systems 2 Review of Systems: All systems reviewed & are unremarkable except as noted in HPI & below Physical Exam 2 Physical Exam: VITALS: Reviewed. WEIGHT/BMI reviewed. GEN: Well-developed, NAD. PSYCH: Good Judgment. AOx3. Normal memory, mood, and affect. HEENT -Head: NC/AT; -Eyes: PERRL, EOMI. No discharge or redn ess; -Ears: External ears are normal. -Nose: Normal nares. NECK: Supple, with no masses. CV: RRR, no m/r/g. LUNGS: CTAB, no w/r/c. ABD: N/A : N/A SKIN: Warm, well perfused. No skin rashes or abnormal lesions. MSK: No deformities, Normal gait. EXT: No clubbing, cyanosis, or edema. NEURO: Normal muscle strength and tone. No focal deficits. Results & Data Results & Data Vital Signs (Past 12 Hours) Vital Signs Temp Pulse Resp BP Pulse Ox O2 Del Method 07/09/25 11:22 36.7 C 79 18 119/63 91 Room Air 07/09/25 11:05 70 16 94 Room Air 07/09/25 07:19 Room Air 07/09/25 07:06 36.8 C 63 18 126/53 L 94 Room Air 07/09/25 06:00 Room Air 07/09/25 02:45 36.8 C 78 18 124/64 95 Room Air Laboratory Results 07/09/25 06:54 07/09/25 06:54 Abnormal Lab Results 07/09/25 06:54 WBC 10.32 RBC 3.03 L Hgb 9.7 L Hct 28.8 L MCV 95.0 MCH 32.0 MCHC 33.7 RDW Std Deviation 47.4 H RDW Coeff of Ciara 13.7 Plt Count 327 MPV 8.8 L Immature Gran % (Auto) 0.7 Neut % (Auto) 67.4 Lymph % (Auto) 20.6 Monroe % (Auto) 10.9 Eos % (Auto) 0.1 Baso % (Auto) 0.3 Neut # (Auto) 6.96 H Lymph # (Auto) 2.13 Monroe # (Auto) 1.12 H Eos # (Auto) 0.01 Baso # (Auto) 0.03 Immature Gran # (Auto) 0.07 Sodium 138 Potassium 4.1 Chloride 105 Carbon Dioxide 26 Anion Gap 7 BUN 16 Creatinine 0.78 Est Cr Clr Drug Dosing 60.5 eGFR 83.72 BUN/Creatinine Ratio 20.5 H Glucose 101 H Calcium 9.3 Magnesium 2.1 Total Bilirubin 0.5 AST 15 ALT 13 Alkaline Phosphatase 45 Total Protein 6.6 Albumin 3.9 Globulin 2.7 Albumin/Globulin Ratio 1.4 Triglycerides 176 H Cholesterol 216 H LDL Cholesterol, Calc 137 VLDL Cholesterol, Calc 35 H HDL Cholesterol 44 Cholesterol/HDL Ratio 4.9 TSH 0.450 Hepatitis C Ab Screen Negative Diagnostic Findings Chest X-Ray 07/09/25 07:00 EXAM: XR chest 1V portable CLINICAL HISTORY: Chest tube TECHNIQUE: An X-ray image of the chest was obtained in the AP portable projection. COMPARISON: Prior CT study dated 06/30/2025. FINDINGS: ECG leads are seen projecting over the chest. The left chest tube is noted, with its tip seen coiled at the lateral aspect of the left mid/lower zone. Pulmonary Parenchyma: A small left lower zone medial aspect nodule is noted, measuring 9 mm. There is no evidence of consolidation or collapse. There is no evidence of pleural effusion or pleural thickening. Heart and Mediastinum: The size and shape of the heart are normal. There is no mediastinal widening or masses. No hilar or mediastinal lymphadenopathy is identified. Bony Thorax: Mild thoracic spine scoliosis is present, with its convexity to the right side. Two small sclerotic foci are seen projecting over the right humeral neck and right scapula. The bony thorax appears intact, without fractures or deformities. Soft Tissues: The soft tissues overlying the chest wall are unremarkable. IMPRESSION: 1. Left chest tube, new finding. 2. No acute cardiopulmonary abnormalities are identified. 3. Left lower zone medial aspect small nodule, unchanged. 4. Clinical correlation is suggested. Electronically signed by Tommie Acuña 07-09-2025 08:11 AM Chest X-Ray 07/09/25 13:00 XR chest 1V portable CLINICAL HISTORY: Eval left PTX after chest tube clamp COMPARISON STUDY: 07/09/2025 FINDINGS: Stable left chest tube. No pneumothorax seen. No consolidation or pleural effusion. IMPRESSION: No pneumothorax seen. ACT 112: Negative or not required by law. Electronically signed by: Harris Dickey M.D. 07/09/2025 11:40 AM PG Care Time/CCT Total # of Minutes Spent Total Time Spent with Patient: Total time spent is greater than 50% in coordination of care (as documented) at patient's floor/unit and/or counseling patient: Coding Level of Care Code 14916 SUB INP/OBS CARE 2/35MIN Diagnoses Pneumothorax after biopsy J95.811 Pulmonary nodule R91.1 COPD (chronic obstructive pulmonary disease) J44.9
[2025-07-09 14:03] LABS: Folate (Folic Acid),Ser orPlas 17.83 ng/ml (>5.38)
[2025-07-09 14:04] LABS: Vitamin B12 223.0 pg/ml (180-914)
--- NOTE | 2025-07-09 16:16 | Discharge Summary ---
"Discharge Summary Date of Service July 09, 2025 Principal Dx & Hospital Course #1 = Principal Diagnosis (1) Pneumothorax after biopsy: (2) Pulmonary nodule: (3) Vitamin B12 deficiency: (4) COPD (chronic obstructive pulmonary disease): Plan #Pneumothorax of L lung - Pt is a 65 y/o woman w/ PMHx significant for Hx lung cancer, COPD, active tobacco abuse, HLD, GERD w/ Barettes who presents for left pneumothorax following biopsy of a spiculated L pulmonary nodule. CXR on 07/08 confirmed placement of chest tube with resolution of pneumothorax. Chest tube was clamped 07/09 by pulmonology and a f/u CXR revealed no pneumothorax. Chest tube was later removed on 07/09 by pulmonology and pt was cleared for d/c. #Left Lung Nodule | Hx Lung CA - Biopsy of spiculated lung nodule was taken on 07/08. Biopsy results are still pending. #COPD | Tobacco Abuse - Pt encouraged to discontinue smoking - pt notes she has not craved cigarettes while using Chantix. Pt to continue Fluticasone Furoate, Anoro Ellipta as well as PRN mes: Albuterol HFA, Albuterol neb - QID. #Vitamin B12 Deficiency anemia- B12 was ordered during pt stay d/t ongoing anemia despite Iron replacement therapy. Pt was encouraged to purchase 1,000 mcg B12 supplement OTC and take QAM. #HLD - Lipid panel on 07/09 reveaked triglyceridemia, hypercholesterolemia with elevated VLDL. Pt should follow-up with PCP - no prior results for reference. #GERD w/ Barretts - no acute concerns during stay; continue omeprazole #Insomnia - no acute concerns during stay; continue trazodone prn #Chiari malformation - S/P surgical correction; pt stable; no longer follows w/ neurology. No concerns during stay. #underweight with BMI 19.8 Dispo: Home, self-care Notes For Next Care Provider Medication Changes From Visit See medication list Admission HPI Per Admitting Provider This is a pleasant 65-year-old female with a remote history of of lung cancer status post right upper lobe lobectomy. This was back around 2019. Patient had a recent hospitalization for a COPD exacerbation where chest imaging demonstrated a left-sided spiculated nodule. Patient presented to [facility] today to undergo bronchoscopy with biopsy. Postprocedure x-ray s howed a large near complete pneumothorax of the left lung. Chest tube was placed in the left upper chest wall. Post chest tube placement chest x-ray demonstrated near resolution of the pneumothorax. We were contacted by pulmonology, Dr. Casey, for admission of the patient to the hospital for acute pneumothorax. We evaluated the patient in PACU. Discharge Exam General: Pt is a 65 y/o WD/WN female in NAD in bed. VS: reviewed as above Skin: Wound dressing seen on upper L chest wall @ site of Chest tube placement. Dressing is dry and intact. Skin is otherwise warm and dry; no lesions or ulcerations Respiratory: CTA bilat, no adventitious sounds noted. Chest expansion is full and symmetrical Cardio: RRR no murmurs Abdomen: normoactive BS x4, nontender to palpation MSK: FROM of extremities, no deformities Extremities: no edema present Neuro: A&Ox4, cooperative and plesant Discharge Plan Discharge Items Patient Disposition: Home - Self-Care Reason For Visit: Pulmonary Nodule/Lung Cancer Discharge Diagnosis: Pulmonary nodule Pneumothorax Activity: Resume your previous activity Lifting: Gradually increase as tolerated Non-emergency contact: Primary Care Provider and Refresh Technician Call non-emergency contact if: you have any medication questions, your symptoms worsen, your pain is not controlled and your pain is worsening Follow-up/Referrals: Mary Pastor MD [Primary Care Provider] - (PCP office closed 07/09 @ 4:30. spoke to patient and she will make follow up appointment) Diet: Regular Addtl Attending Provider Instructions: You were admitted to the hospital after experiencing a pneumothorax following a biopsy of the left lung. While you were in the hospital, a chest tube was placed and serial chest x-rays were taken to ensure proper placement and resolution of the pneumothorax. On 07/09, the chest tube was clamped and a repeat x-ray revealed no pneumothorax. Your chest tube was then removed by pulmonology. Additionally while you were here, a B12 test was ordered and revealed to be low. You're encouraged to initiate a B12 supplement of 1,000 mcgs every morning. Please return to the emergency room if you develop sudden onset drafvkros-fn-ztzufn, sudden or worsening chest pain, or begin coughing up blood. Medications: Your medication list has been reviewed and reconciled upon discharge to ensure accuracy and continuity of care. An updated list of all your medications is included with your hospital discharge paperwork. Please review this list closely, and make note of any changes. Take your medications as instructed; do not skip a dose of your medicines. Make sure all of your doctors know every medicine you are taking (including sjir-rvm-[id number] medicines, vitamins, and supplements). Call your primary care provider before taking any new medicines (including over- the-counter medicines, vitamins, and supplements), because some of these may interact with your current medications, or may make your symptoms worse. Tell your primary care provider if you cannot afford your medications. Activity: You can do normal everyday activities as your body allows. Take rest breaks if you feel tired. Do not overexert. Stop activity if you have pain, shortness of breath or feel dizzy. Follow-up appointments: Make an appointment with your primary care physician within one week of discharge. A copy of this summary will be sent to them. Every time you see your primary care physician, or any other doctor, bring your medication list, and a list of questions. CONTACT YOUR PRIMARY CARE PROVIDER if you experience any of the following: Shortness of breath or difficulty breathing Fevers or chills Feeling tired with normal activity or experiencing dizziness or fainting Difficulty following your treatment plan, or difficulty taking medications CALL 911 OR GO TO THE EMERGENCY DEPARTMENT if you experience any of the following: Severe abdominal pain or nausea/vomiting Severe chest pain, or chest pain that radiates (moves) to your jaw or arm Sudden, severe shortness of breath or difficulty breathing Thank you for allowing us to participate in your care. Addtl Repair Servicer Provider Instructions: 1. May experience low-grade fevers up to 100.5 in the next 24 hours. Tylenol 500 mg every 4 hours orally can be used to manage the symptom. 2. May experience cough with some blood-tinged phlegm. This should decrease over the next 12 to 24 hours. Return to the emergency room if coughing up mouthfuls of blood. 3. Return to the emergency room for increasing chest pain, fevers greater than 101.5, or shortness of breath. 4. Dr. Casey will contact you once pathology results are available, typically within 72 hours Pending Studies at Discharge: Yes Studies:: Biopsy Stand-Alone Forms: My [employer], Smoking Cessation Medications and DC Order Prescriptions: Continued trazodone 150 mg tablet 150 mg PO HS PRN (Reason: Sleep) albuterol sulfate 90 mcg/actuation HFA aerosol inhaler 1 puff inhalation QID PRN (Reason: sob) Trelegy Ellipta 100-62.5-25 mcg blister with device 1 inh inhalation DAILY ipratropium bromide 0.02 % solution 2.5 ml inhalation QID PRN (Reason: sob) omeprazole 40 mg capsule,delayed release(DR/EC) 40 mg PO QAM albuterol sulfate 1.25 mg/3 mL solution for nebulization 1.25 mg inhalation QID PRN (Reason: sob) acetaminophen 500 mg Tablet 1,000 mg PO DAILY PRN (Reason: Pain) Ensure Liquid 1 ea PO DAILY No Action varenicline tartrate 0.5 mg (11)- 1 mg (42) tablets,dose pack 1 ea Discharge Orders: Discharge Order (Routine); Ordered 07/09/25 Ordered By: Rebecca Estrada Admission Data Admit Date/Time: 07/08/25 10:44 Attending Provider: Vandana Davenport Admit Provider: Gresyon Carballo Primary Care Provider: aMry Pastor Other Interventions: Discharge Summary Assessment (RN) Last Done: 07/09/25 16:35 Hospital Stay Data Procedures Performed Operation Date: 07/08/25 07:30 Actual Procedures p Robotic Navigational Bronchoscopy(Not Applicable) - Howard Casey MD s Endobronchial Ultrasound, Transbronchial Needle Aspiration, Transbronchial Biopsy, Placement of a Fiducial(Not Applicable) - Howard Casey MD Diagnostic Imagining Performed Chest X-Ray 07/08/25 09:03 SINGLE VIEW CHEST CLINICAL HISTORY: Post bronchoscopy. FINDINGS: An AP, portable, upright chest radiograph is compared to study dated 06/02/2025 and correlated with chest CT dated 06/30/2025. The cardiomediastinal silhouette is unremarkable noting atherosclerotic calcification of the thoracic aorta. Emphysematous changes observed. There is a large left-sided pneumothorax with near complete atelectasis of the left lung. The trachea remains midline. No right-sided pneumothorax is seen. Scarring/atelectasis is noted at the right lung base. The skeletal structures are osteopenic. Bony thorax is grossly intact. Degenerative change and mild scoliosis is seen in the thoracic spine. Cholecystectomy clips are noted in the right upper quadrant. IMPRESSION: 1. Large left-sided pneumothorax with near complete atelectasis of the left lung. 2. The trachea is midline. 3. Emphysema. ACT 112: Negative or not required by law. Electronically signed by: Ilia Roque M.D. 07/08/2025 9:33 AM Chest X-Ray 07/08/25 09:55 XR chest 1V portable CLINICAL HISTORY: S/P chest tube placement COMPARISON STUDY: 07/08/2025 FINDINGS: There is an interval left chest tube with the distal pigtail lateral left mid hemithorax. There is interval resolution of the prior left pneu mothorax. No consolidation or pleural effusion seen. Stable mild scoliosis. IMPRESSION: Interval left chest tube with resolution of the prior left pneumothorax. ACT 112: Negative or not required by law. Electronically signed by: Harris Dickey M.D. 07/08/2025 10:14 AM Chest X-Ray 07/09/25 07:00 EXAM: XR chest 1V portable CLINICAL HISTORY: Chest tube TECHNIQUE: An X-ray image of the chest was obtained in the AP portable projection. COMPARISON: Prior CT study dated 06/30/2025. FINDINGS: ECG leads are seen projecting over the chest. The left chest tube is noted, with its tip seen coiled at the lateral aspect of the left mid/lower zone. Pulmonary Parenchyma: A small left lower zone medial aspect nodule is noted, measuring 9 mm. There is no evidence of consolidation or collapse. There is no evidence of pleural effusion or pleural thickening. Heart and Mediastinum: The size and shape of the heart are normal. There is no mediastinal widening or masses. No hilar or mediastinal lymphadenopathy is identified. Bony Thorax: Mild thoracic spine scoliosis is present, with its convexity to the right side. Two small sclerotic foci are seen projecting over the right humeral neck and right scapula. The bony thorax appears intact, without fractures or deformities. Soft Tissues: The soft tissues overlying the chest wall are unremarkable. IMPRESSION: 1. Left chest tube, new finding. 2. No acute cardiopulmonary abnormalities are identified. 3. Left lower zone medial aspect small nodule, unchanged. 4. Clinical correlation is suggested. Electronically signed by Tommie Acuña 07-09-2025 08:11 AM Chest X-Ray 07/09/25 13:00 XR chest 1V portable CLINICAL HISTORY: Eval left PTX after chest tube clamp COMPARISON STUDY: 07/09/2025 FINDINGS: Stable left chest tube. No pneumothorax seen. No consolidation or pleural effusion. IMPRESSION: No pneumothorax seen. ACT 112: Negative or not required by law. Electronically signed by: Harris Dickey M.D. 07/09/2025 11:40 AM 07/08/25 07:30 FL bronchoscopy Routine Discharge Instructions Given to Patient (Per Discharging Provider) You were admitted to the hospital after experiencing a pneumothorax following a biopsy of the left lung. While you were in the hospital, a chest tube was placed and serial chest x-rays were taken to ensure proper placement and resolution of the pneumothorax. On 07/09, the chest tube was clamped and a repeat x-ray revealed no pneumothorax. Your chest tube was then removed by pulmonology. Additionally while you were here, a B12 test was ordered and revealed to be low. You're encouraged to initiate a B12 supplement of 1,000 mcgs every morning. Please return to the emergency room if you develop sudden onset dmzujcfec-av-cdnprv, sudden or worsening chest pain, or begin coughing up blood. Medications: Your medication list has been reviewed and reconciled upon discharge to ensure accuracy and continuity of care. An updated list of all your medications is included with your hospital discharge paperwork. Please review this list closely, and make note of any changes. Take your medications as instructed; do not skip a dose of your medicines. Make sure all of your doctors know every medicine you are taking (including rpjk-wxg-awnzifi medicines, vitamins, and supplements). Call your primary care provider before taking any new medicines (including over- the-counter medicines, vitamins, and supplements), because some of these may interact with your current medications, or may make your symptoms worse. Tell your primary care provider if you cannot afford your medications. Activity: You can do normal everyday activities as your body allows. Take rest breaks if you feel tired. Do not overexert. Stop activity if you have pain, shortness of breath or feel dizzy. Follow-up appointments: Make an appointment with your primary care physician within one week of discharge. A copy of this summary will be sent to them. Every time you see your primary care physician, or any other doctor, bring your medication list, and a list of questions. CONTACT YOUR PRIMARY CARE PROVIDER if you experience any of the following: Shortness of breath or difficulty breathing Fevers or chills Feeling tired with normal activity or experiencing dizziness or fainting Difficulty following your treatment plan, or difficulty taking medications CALL 911 OR GO TO THE EMERGENCY DEPARTMENT if you experience any of the following: Severe abdominal pain or nausea/vomiting Severe chest pain, or chest pain that radiates (moves) to your jaw or arm Sudden, severe shortness of breath or difficulty breathing Thank you for allowing us to participate in your care. Supervising Physician Co-Signing Physician Notes PA Supervision Note: I did not personally see or examine the patient today, but I verified all santiago points of ALIRIO Estrada's assessment and plan with the following exceptions/additions: None Total Time Total Time Spent Total Time Spent (In Minutes): Time spent day of discharge 45 minutes including direct patient care, medication reconciliation, documentation, review of labs and images, and coordination of care. Coding Level of Care Code 59878 INP/OBS DISCH >30 MIN Diagnoses Pneumothorax after biopsy J95.811 Pulmonary nodule R91.1 Vitamin B12 deficiency E53.8 COPD (chronic obstructive pulmonary disease) J44.9"
--- NOTE | 2025-07-11 05:26 | Coding Query ---
PATHOLOGY To promote full compliance with coding requirements relating to patient care, physician participation is requested in all cases of micro paleontologist uncertainty. Please assist us with the question(s) below: Please review the Pathology report and please document any relevant diagnosis(es) below: Diagnosis(es): Lung adenocarcinoma Thank you ROSALINDA Maria [facility]
--- NOTE | 2025-07-11 15:51 | Anesthesiology Progress Note ---
Date of Service July 08, 2025 Anesthesia Post Procedure Pain Intensity Left Chest: Pain Intensity: 6 Transfer of Care Handoff Completed per policy Notes Mental Status: alert / awake / arousable Patient Amnestic to Procedure: Yes Nausea / Vomiting: adequately controlled Pain: adequately controlled Airway Patency, RR, SpO2: see Notes below BP & HR: stable & adequate Hydration State: stable & adequate Anesthetic Complications: see Notes below Notes: pneumothorax tx in pacu
== END 2025-07-09 17:32 | disposition home or self-care (01) | DRG 167 ==
LOC: ASU 05:53 → 2S 10:44 → SUATTDRO 10:44 → 2S 07-09 13:48